=== PATIENT | female | born 1970 | race African-American/Black ===

== ENCOUNTER 2021-08-06 13:32 | Inpatient (IN) ==
[2021-08-06] MEDS ORDERED: guaiFENesin/DM ER 600-30 MG TABLET PO PRN (18:33)
[2021-08-06] MEDS ORDERED: DEXTROSE 50% 25 GM/50 ML VIAL IV PRN (18:33)
[2021-08-06] MEDS ORDERED: DOCUSATE SODIUM 100 MG CAPSULE PO PRN (18:33)
[2021-08-06] MEDS ORDERED: NICOTINE 21 MG/24 HR PATCH TRANSDERM PRN (18:33)
[2021-08-06] MEDS ORDERED: ONDANSETRON 4 MG/2 ML VIAL IV PRN (18:33)
[2021-08-06] MEDS ORDERED: hydrALAZINE 20 MG/1 ML VIAL IV PRN (18:33)
[2021-08-06] MEDS ORDERED: ZALEPLON 5 MG CAPSULE PO PRN (18:33)
[2021-08-06] MEDS ORDERED: GLUCAGON 1 MG VIAL IM PRN ×2 (18:33)
[2021-08-06] MEDS ORDERED: DEXTROSE 10% 25 GM/250 ML BAG IV PRN (18:39)
[2021-08-06] MEDS: SODIUM CHLORIDE 0.9% 1,000 ML IV SCH (19:37)
[2021-08-06 19:49] LABS: Basophils % 0.2 % (0.0-0.8); Eosinophils # 0.1 10*3/uL (0.0-0.87); Eosinophils % 0.8 % (0.00-10.9); Hematocrit 34.9 VOL% (35.7-47.0); Hemoglobin 11.8 GM/DL (12.0-16.0); Immature Granulocytes % 0.9 %; Lymphocytes # 1.4 10*3/uL (1.4-4.0); Lymphocytes % 12.6 % (21.3-54.2); Mean Corpuscular HGB Conc 33.8 GM/DL (32-36); Mean Corpuscular Volume 92.6 FL (87-102); Mean Platelet Volume 10.4 FL (9.6-12.0); Monocytes % 8.1 % (1.7-12.7); NRBC # 0.05 10*3/uL; Neutrophils % 77.4 % (38.7-73.9); Platelet Count 255 T/CUMM (130-400); Red Blood Count 3.77 MC/CUMM (3.8-5.5); White Blood Count 10.8 T/CUMM (4-12)
[2021-08-06] MEDS: ALBUTEROL/IPRATROPIUM 3 ML NEB RESP TX SCH (19:50)
[2021-08-06 20:07] LABS: Albumin 2.2 G/DL (3.4-5.0); Calcium 8.5 MG/DL (8.5-10.1); Osmolality,Calculated 261.7 MOS/KG (273-304); Potassium 3.7 MMOL/L (3.5-5.1); Total Protein 6.6 G/DL (6.4-8.2)
[2021-08-06 20:12] LABS: Bilirubin,Total 13.3 MG/DL (0.20-1.00)
[2021-08-06 20:14] LABS: Thyroid Stimulating Hormone 0.609 uIU/ml (0.358-3.74)
[2021-08-06] MEDS: INSULIN REGULAR 100 UNIT/ML SUBCUT SCH (21:15)
[2021-08-06] MEDS: PIPERACILLIN/TAZOBACTAM 3,375 MG in SODIUM CHLORIDE 0.9% 100 ML IV SCH (21:32)
[2021-08-06] MEDS: methylPREDNISolone SOD SUC 40 MG/1 ML VIAL IV SCH (21:32)
[2021-08-06] MEDS: ENOXAPARIN 40 MG/0.4 ML SYRINGE SUBCUT SCH (21:33)
[2021-08-06] MEDS: MORPHINE 2 MG/1 ML SYRINGE IV PRN (21:33)
[2021-08-06 22:02] LABS: Bacteria,Urine Occasional /HPF (Few); Blood, Urine Negative (Negative); Glucose,Urine (UA) >=500 mg/dL (Negative); Ketones,Urine 20 mg/dL (Negative); Mucus,Urine Occasional /LPF (Occasional); Nitrite,Urine Negative (Negative); Protein,Urine 100 MG/DL; RBC,Urine 6 /HPF (0-4); Squamous Epithelial Cell,Urine Few /HPF (0-10); Urine Appearance CLEAR (Clear); Urine Color Amber (Yellow); Urine Specific Gravity 1.057 (1.001-1.035)
[2021-08-06 22:03] LABS: Bilirubin,Urine Moderate mg/dL (Negative)
[2021-08-07 00:26] LABS: Hepatitis B Surface Ag Quant < 0.10 Index; Hepatitis B Surface Ag Result Non-Reactive (NonReactive); Hepatitis C Virus Ab Quant 0.06 Index; Hepatitis C Virus Ab Result Non-Reactive (NonReactive)
[2021-08-07] MEDS: ALBUTEROL/IPRATROPIUM 3 ML NEB RESP TX SCH ×4 (01:35→19:30)
[2021-08-07] MEDS: PIPERACILLIN/TAZOBACTAM 3,375 MG in SODIUM CHLORIDE 0.9% 100 ML IV SCH ×3 (05:20→20:58)
[2021-08-07] MEDS: methylPREDNISolone SOD SUC 40 MG/1 ML VIAL IV SCH ×3 (05:43→20:59)
[2021-08-07 06:19] LABS: Basophils % 0.2 % (0.0-0.8); Hematocrit 32.4 VOL% (35.7-47.0); Hemoglobin 10.8 GM/DL (12.0-16.0); Immature Granulocytes % 1.1 %; Immature Granulocytes Absolute 0.13 #; Lymphocytes # 1.4 10*3/uL (1.4-4.0); Lymphocytes % 11.2 % (21.3-54.2); Mean Corpuscular HGB Conc 33.3 GM/DL (32-36); Mean Platelet Volume 10.8 FL (9.6-12.0); Monocytes % 3.6 % (1.7-12.7); NRBC # 0.07 10*3/uL; Neutrophils % 83.9 % (38.7-73.9); Platelet Count 266 T/CUMM (130-400); Red Blood Count 3.41 MC/CUMM (3.8-5.5); Red Cell Distribution Width 13.3 % (9.3-17.3); White Blood Count 12.1 T/CUMM (4-12)
[2021-08-07 06:39] LABS: Alanine Aminotransferase 232 U/L (13-56); Albumin 2.1 G/DL (3.4-5.0); Alkaline Phosphatase 459 U/L (45-117); Aspartate Amino Transferase 454 U/L (0-37); Blood Urea Nitrogen 17 MG/DL (7-18); Calcium 8.5 MG/DL (8.5-10.1); Carbon Dioxide 16 MMOL/L (21-32); Estimated Glom Filtration Rate 97 ML/MIN; Glucose 256 MG/DL (74-106); HDL Cholesterol < 10 MG/DL (40-60); Osmolality,Calculated 270.8 MOS/KG (273-304); Potassium 4.3 MMOL/L (3.5-5.1); Sodium 130 MMOL/L (136-145); Total Protein 6.3 G/DL (6.4-8.2); Triglycerides 509 MG/DL (2-150); VLDL Cholesterol 101.8 MG/DL
[2021-08-07] MEDS: INSULIN REGULAR 100 UNIT/ML SUBCUT SCH ×4 (08:35→20:59)
[2021-08-07 09:13] LABS: % Iron Saturation 30.7 % (18-50)
[2021-08-07 09:14] LABS: Ferritin 13907.9 ng/mL (8-252)
[2021-08-07] MEDS: PANTOPRAZOLE 40 MG TABLET PO SCH (10:18)
[2021-08-07] MEDS: INSULIN GLARGINE 100 UNIT/ML SUBCUT SCH ×2 (17:12→20:59)
[2021-08-07] MEDS: MORPHINE 2 MG/1 ML SYRINGE IV PRN (18:59)
[2021-08-07] MEDS: ENOXAPARIN 40 MG/0.4 ML SYRINGE SUBCUT SCH (20:58)
[2021-08-07] MEDS: SODIUM CHLORIDE 0.9% 1,000 ML IV SCH ×2 (22:26→22:27)
[2021-08-08] MEDS: ALBUTEROL/IPRATROPIUM 3 ML NEB RESP TX SCH ×4 (00:41→19:38)
[2021-08-08] MEDS: SODIUM CHLORIDE 0.9% 1,000 ML IV SCH ×3 (03:48→21:16)
[2021-08-08] MEDS: PIPERACILLIN/TAZOBACTAM 3,375 MG in SODIUM CHLORIDE 0.9% 100 ML IV SCH ×3 (05:35→21:16)
[2021-08-08] MEDS: methylPREDNISolone SOD SUC 40 MG/1 ML VIAL IV SCH (05:35)
[2021-08-08 05:57] LABS: Basophils % 0.2 % (0.0-0.8); Hematocrit 30.2 VOL% (35.7-47.0); Hemoglobin 10.2 GM/DL (12.0-16.0); Immature Granulocytes % 2.5 %; Immature Granulocytes Absolute 0.49 #; Lymphocytes # 1.3 10*3/uL (1.4-4.0); Lymphocytes % 6.7 % (21.3-54.2); Mean Corpuscular HGB Conc 33.8 GM/DL (32-36); Mean Platelet Volume 10.6 FL (9.6-12.0); Monocytes % 7.2 % (1.7-12.7); NRBC # 0.16 10*3/uL; Neutrophils % 83.4 % (38.7-73.9); Platelet Count 321 T/CUMM (130-400); Red Blood Count 3.18 MC/CUMM (3.8-5.5); Red Cell Distribution Width 13.8 % (9.3-17.3); White Blood Count 19.6 T/CUMM (4-12)
[2021-08-08 06:16] LABS: Calcium 8.1 MG/DL (8.5-10.1); Osmolality,Calculated 289.7 MOS/KG (273-304); Potassium 4.4 MMOL/L (3.5-5.1); Total Protein 6.2 G/DL (6.4-8.2)
[2021-08-08 06:19] LABS: Bilirubin,Total 15.2 MG/DL (0.20-1.00)
[2021-08-08] MEDS: INSULIN REGULAR 100 UNIT/ML SUBCUT SCH ×4 (08:28→21:15)
[2021-08-08] MEDS: INSULIN GLARGINE 100 UNIT/ML SUBCUT SCH ×2 (08:28→21:16)
[2021-08-08] MEDS: PANTOPRAZOLE 40 MG TABLET PO SCH (08:29)
[2021-08-08] MEDS: ENOXAPARIN 40 MG/0.4 ML SYRINGE SUBCUT SCH (21:15)
[2021-08-09] MEDS: ALBUTEROL/IPRATROPIUM 3 ML NEB RESP TX SCH ×4 (00:22→19:18)
[2021-08-09] MEDS: PIPERACILLIN/TAZOBACTAM 3,375 MG in SODIUM CHLORIDE 0.9% 100 ML IV SCH ×3 (05:09→21:26)
[2021-08-09 05:45] LABS: Basophils # 0.1 10*3/uL (0.0-0.2); Basophils % 0.2 % (0.0-0.8); Eosinophils # 0.1 10*3/uL (0.0-0.87); Eosinophils % 0.6 % (0.00-10.9); Hematocrit 27.6 VOL% (35.7-47.0); Hemoglobin 9.1 GM/DL (12.0-16.0); Immature Granulocytes % 6.2 %; Immature Granulocytes Absolute 1.39 #; Lymphocytes # 2.3 10*3/uL (1.4-4.0); Lymphocytes % 10.4 % (21.3-54.2); Mean Corpuscular Volume 95.8 FL (87-102); Mean Platelet Volume 10.4 FL (9.6-12.0); Monocytes % 7.1 % (1.7-12.7); NRBC # 0.38 10*3/uL; Neutrophils % 75.5 % (38.7-73.9); Platelet Count 353 T/CUMM (130-400); Red Blood Count 2.88 MC/CUMM (3.8-5.5); Red Cell Distribution Width 14.1 % (9.3-17.3); White Blood Count 22.3 T/CUMM (4-12)
[2021-08-09 06:20] LABS: Albumin 1.9 G/DL (3.4-5.0); Bilirubin,Total 10.6 MG/DL (0.20-1.00); Calcium 8.1 MG/DL (8.5-10.1); Potassium 3.5 MMOL/L (3.5-5.1); Total Protein 6.1 G/DL (6.4-8.2)
[2021-08-09 07:38] LABS: Band Neutrophils 3 % (0-10); Lymphocytes 8 % (20-55); Metamyelocytes 1 %; Microcytosis Slight; Myelocytes 1 %; Nucleated Red Blood Cells 4 (0-5); Platelet Estimate Increased; Polychromasia Slight; Segmented Neutrophils 87 % (50-85); Total Cells Counted 100
[2021-08-09 07:39] LABS: Target Cells Few
[2021-08-09] MEDS: INSULIN REGULAR 100 UNIT/ML SUBCUT SCH ×4 (11:06→21:27)
[2021-08-09] MEDS: INSULIN GLARGINE 100 UNIT/ML SUBCUT SCH ×2 (11:06→21:27)
[2021-08-09] MEDS: SODIUM CHLORIDE 0.9% 1,000 ML IV SCH ×2 (11:06→11:07)
[2021-08-09] MEDS: PANTOPRAZOLE 40 MG TABLET PO SCH (11:06)
[2021-08-09] MEDS: OMEGA 3 ACID ETHYL ESTERS 1 GM CAPSULE PO SCH ×2 (12:40→21:28)
[2021-08-09] MEDS: ENOXAPARIN 40 MG/0.4 ML SYRINGE SUBCUT SCH (21:26)
[2021-08-10] MEDS: ALBUTEROL/IPRATROPIUM 3 ML NEB RESP TX SCH ×2 (00:19→07:10)
[2021-08-10] MEDS: PIPERACILLIN/TAZOBACTAM 3,375 MG in SODIUM CHLORIDE 0.9% 100 ML IV SCH (04:06)
[2021-08-10 06:53] LABS: Basophils # 0.1 10*3/uL (0.0-0.2); Basophils % 0.6 % (0.0-0.8); Eosinophils # 0.4 10*3/uL (0.0-0.87); Eosinophils % 2.2 % (0.00-10.9); Hematocrit 28.6 VOL% (35.7-47.0); Hemoglobin 9.2 GM/DL (12.0-16.0); Immature Granulocytes % 11.5 %; Immature Granulocytes Absolute 1.98 #; Lymphocytes # 2.9 10*3/uL (1.4-4.0); Lymphocytes % 16.7 % (21.3-54.2); Mean Corpuscular HGB Conc 32.2 GM/DL (32-36); Mean Corpuscular Volume 96.9 FL (87-102); Mean Platelet Volume 10.6 FL (9.6-12.0); Monocytes % 5.9 % (1.7-12.7); NRBC # 0.97 10*3/uL; Neutrophils % 63.1 % (38.7-73.9); Platelet Count 339 T/CUMM (130-400); Red Blood Count 2.95 MC/CUMM (3.8-5.5); Red Cell Distribution Width 14.6 % (9.3-17.3); White Blood Count 17.2 T/CUMM (4-12)
[2021-08-10 07:15] LABS: Band Neutrophils 2 % (0-10); Eosinophils 3 % (0-10); Hypochromia 1+; Lymphocytes 18 % (20-55); Microcytosis 1+; Nucleated Red Blood Cells 4 (0-5); Platelet Estimate Adequate; Segmented Neutrophils 72 % (50-85); Total Cells Counted 100
[2021-08-10 07:37] LABS: Albumin 1.8 G/DL (3.4-5.0); Calcium 7.9 MG/DL (8.5-10.1); Potassium 3.4 MMOL/L (3.5-5.1); Total Protein 5.6 G/DL (6.4-8.2)
[2021-08-10 07:45] LABS: Bilirubin,Total 14.5 MG/DL (0.20-1.00)
[2021-08-10 08:36] VITALS: BP 125/69
[2021-08-10] MEDS: OMEGA 3 ACID ETHYL ESTERS 1 GM CAPSULE PO SCH (08:58)
[2021-08-10] MEDS: PANTOPRAZOLE 40 MG TABLET PO SCH (08:58)
[2021-08-10] MEDS: INSULIN REGULAR 100 UNIT/ML SUBCUT SCH (09:00)
[2021-08-10] MEDS: INSULIN GLARGINE 100 UNIT/ML SUBCUT SCH (09:00)
[2021-08-10] MEDS ORDERED: POTASSIUM CHLORIDE 20 MEQ TABLET PO ONE (10:00)
[2021-08-10] MEDS ORDERED: CLINDAMYCIN 300 MG CAPSULE PO SCH (12:00)
[2021-08-10 14:31] LABS: Smooth Muscle Antibody Negative (Negative)
== END 2021-08-10 11:45 | disposition home or self-care (01) | DRG 442 ==
LOC: N.3E → SUATTDRO 17:13
PROVIDERS: ADMIT Internal Medicine; ATTEND Internal Medicine